=== PATIENT | male | born 1990 | race American Indian/Alaskan Native ===

== ENCOUNTER 2016-12-14 10:38 | Outpatient (CLI) | payer OTHER ==
--- NOTE | 2016-12-14 11:43 | XRay Report ---
CHEST 2 VIEWS INDICATION: Bronchitis. COMPARISON: None similar at this institution. FINDINGS: PA and lateral chest radiographs demonstrate normal cardiomediastinal silhouette. Clear lungs. Mild dextroscoliosis apex about T7. CONCLUSION: No acute disease in the chest. Thank you for the opportunity to participate in this patient's care.
== END 2016-12-14 10:39 | disposition home or self-care (01) ==
LOC: SPVWC 10:38
DX: J40 Bronchitis, not specified as acute or chronic (principal)
CPT/HCPCS: 71020